=== PATIENT | female | born 1945 | race Caucasian/White ===

== ENCOUNTER 2017-09-28 20:06 | Inpatient (IN) | payer MEDICARE ==
[~2017-09-28] VITALS: Ht 162.6 cm; Wt 93.0 kg
[~2017-09-28 20:06] MED LIST: ADVI200C9 PO; LORT5TAB PO; TRIA.1%T TOP
[2017-09-28 20:11] VITALS: BP 192/98; PULSE 99; RESP 22; TEMP 98.1; O2SAT 93
[2017-09-28] MEDS ORDERED: cloNIDine HCL 0.2 MG TAB PO ONE (21:00)
--- NOTE | 2017-09-28 21:02 | PD ---
HPI Chief Complaint: Psychiatric Symptoms Time Seen by Provider: 20:48 Travel History International Travel<30 days: No Contact w/Intl Traveler<30days: No Traveled to known affect area: No History of Present Illness HPI This is a 71-year-old female who presents under a Linda act initiated by the police department. According to her paperwork, " has claimed she is going to kill herself due to having no living relatives and losing her and daughter." The patient reports that her ex son-in-law and his girlfriend are currently living at her house. She feels like they're taking advantage of her in today she had an argument with him in which she threatened to sell the house and then kill herself. She reports that she only said this because she was upset and angry. She denies any actual suicide intent but she doesn't endorse generalized feelings of depression. She denies any drug or alcohol use and she has no medical complaints at this time. [facility] Past Medical History Cerebrovascular Accident: Yes Past Surgical History Appendectomy: Yes Cholecystectomy: Yes Social History Alcohol Use: No Tobacco Use: Yes (10/08 PPD ) Substance Use: No Allergies-Medications (Allergen,Severity, Reaction): Coded Allergies: No Known Allergies (Verified Allergy, Unknown, 09/29/17) Reported Meds & Prescriptions Reported Meds & Active Scripts Active Amlodipine (Amlodipine Besylate) 5 Mg Tab 5 Mg PO DAILY Review of Systems Except as stated in HPI: all other systems reviewed are Neg Physical Exam Narrative GENERAL: This is a somewhat disheveled appearing female who is in no acute distress. SKIN: Warm and dry. HEAD: Atraumatic. Normocephalic. EYES: Pupils equal and round. No scleral icterus. No injection or drainage. ENT: No nasal bleeding or discharge. Mucous membranes pink and moist. NECK: Trachea midline. No JVD. CARDIOVASCULAR: Regular rate and rhythm. No murmur appreciated. RESPIRATORY: No accessory muscle use. Clear to auscultation. Breath sounds equal bilaterally. GASTROINTESTINAL: Abdomen soft, non-tender, nondistended. Hepatic and splenic margins not palpable. MUSCULOSKELETAL: No obvious deformities. No clubbing. No cyanosis. No edema. NEUROLOGICAL: Awake and alert. No obvious cranial nerve deficits. Motor grossly within normal limits. Normal speech. PSYCHIATRIC: Depressed, anxious, tearful. Data Data Last Documented VS Vital Signs Date Time Temp Pulse Resp B/P (MAP) Pulse Ox O2 Delivery O2 Flow Rate FiO2 09/29/17 00:31 90 20 163/77 (105) 97 Room Air 09/28/17 20:11 98.1 Orders Orders Complete Blood Count With Diff (09/28/17 20:58) Comprehensive Metabolic Panel (09/28/17 20:58) Psych Screen (09/28/17 20:58) Drug Screen, Random Urine (09/28/17 20:58) Alcohol (Ethanol) (09/28/17 20:58) Clonidine (Catapres) (09/28/17 21:00) Enalaprilat Inj (Vasotec Inj) (09/28/17 23:15) Labetalol Inj (Trandate Inj) (09/28/17 23:15) Labetalol Inj (Trandate Inj) (09/29/17 00:00) Admit Order (Ed Use Only) (09/29/17 01:21) Admit To Inpatient Psych (09/29/17 ) Vital Signs (Adult) [id number].E (09/29/17 01:21) Activity Oob Ad Deysi (09/29/17 01:21) Level Of Observation (Psych) (09/29/17 01:21) Diet Regular Basic (09/29/17 Breakfast) Basic Metabolic Panel (Bmp) (09/30/17 06:00) Urinalysis - C+S If Indicated (09/30/17 01:21) Lipid Profile (09/30/17 06:00) Hemoglobin (Hgb) A1c (09/30/17 06:00) Consult Hospitalist (09/29/17 ) Labs Laboratory Tests Test 09/28/17 21:10 09/28/17 22:40 White Blood Count 8.4 TH/MM3 Red Blood Count 4.37 MIL/MM3 Hemoglobin 14.7 GM/DL Hematocrit 42.4 % Mean Corpuscular Volume 97.1 FL Mean Corpuscular Hemoglobin 33.6 PG Mean Corpuscular Hemoglobin Concent 34.6 % Red Cell Distribution Width 12.4 % Platelet Count 266 TH/MM3 Mean Platelet Volume 7.7 FL Neutrophils (%) (Auto) 76.3 % Lymphocytes (%) (Auto) 13.6 % Monocytes (%) (Auto) 7.1 % Eosinophils (%) (Auto) 2.2 % Basophils (%) (Auto) 0.8 % Neutrophils # (Auto) 6.4 TH/MM3 Lymphocytes # (Auto) 1.1 TH/MM3 Monocytes # (Auto) 0.6 TH/MM3 Eosinophils # (Auto) 0.2 TH/MM3 Basophils # (Auto) 0.1 TH/MM3 CBC Comment DIFF FINAL Differential Comment Blood Urea Nitrogen 16 MG/DL Creatinine 0.86 MG/DL Random Glucose 148 MG/DL Total Protein 7.8 GM/DL Albumin 3.3 GM/DL Calcium Level 8.8 MG/DL Alkaline Phosphatase 123 U/L Aspartate Amino Transf (AST/SGOT) 14 U/L Alanine Aminotransferase (ALT/SGPT) 15 U/L Total Bilirubin 0.2 MG/DL Sodium Level 141 MEQ/L Potassium Level 3.5 MEQ/L Chloride Level 110 MEQ/L Carbon Dioxide Level 22.6 MEQ/L Anion Gap 8 MEQ/L Estimat Glomerular Filtration Rate 65 ML/MIN Ethyl Alcohol Level LESS THAN 3 MG/DL Urine Opiates Screen NEG Urine Barbiturates Screen NEG Urine Amphetamines Screen NEG Urine Benzodiazepines Screen NEG Urine Cocaine Screen NEG Urine Cannabinoids Screen NEG MDM Medical Decision Making Medical Screen Exam Complete: Yes Emergency Medical Condition: Yes Medical Record Reviewed: Yes Differential Diagnosis Adjustment reaction, major depressive disorder, depressive disorder not otherwise specified, acute psychosis, substance induced mood disorder Narrative Course This Is a 71-year-old female who presents under Linda act for psychiatric evaluation. She is noted to be hypertensive which is likely at least partially related to the current stressful situation. She has not seen a primary care physician in several years and never checks her blood pressure so no baseline blood pressure is available. She will be given a dose of clonidine and it was strongly recommended to her that she check her blood pressure and a routine basis and keep the readings and internal so that she can follow up with primary care physician and discuss the findings. She does verbalize understanding. Mental health screening discussed with the patient. Psychiatric screen ordered. The patient's blood pressure was persistently elevated after the administration of clonidine and therefore doses of IV labetalol were administered with initial reduction of blood pressure to 160 systolic range however this was only brief. Her blood pressure swiftly rebounded to 230/105 despite 2 IV doses of labetalol and 1 dose of oral clonidine. Initially the patient is going to be admitted to inpatient psychiatry however because of her persistently elevated blood pressure she will require admission to the medical side with likely consultation with psychiatry. Diagnosis Primary Impression: Depression Additional Impression: Hypertensive urgency Scripts Amlodipine (Amlodipine) 5 Mg Tab 5 MG PO DAILY for Blood Pressure Management, #30 TAB 0 Refills Prov: Diony Story MD 09/29/17 Kostas Negron Sep 28, 2017 21:02
[2017-09-28 21:48] VITALS: BP 192/92; PULSE 106; RESP 20; O2SAT 97
[2017-09-28 21:55] LABS: AUTOMATED NEUTROPHIL # 6.4 TH/MM3 (1.8-7.7); BASOPHIL # 0.1 TH/MM3 (0-0.2); BASOPHIL % 0.8 % (0.0-2.0); EOSINOPHIL # 0.2 TH/MM3 (0-0.4); EOSINOPHIL % 2.2 % (0.0-4.0); HEMATOCRIT 42.4 % (35.0-46.0); HEMOGLOBIN 14.7 GM/DL (11.6-15.3); LYMPH % 13.6 % (9.0-44.0); LYMPHOCYTE # 1.1 TH/MM3 (1.0-4.8); MEAN CELL VOLUME 97.1 FL (80.0-100.0); MEAN CORPUSCULAR HEMOGLOBIN 33.6 PG (27.0-34.0); MEAN CORPUSCULAR HGB CONC 34.6 % (32.0-36.0); MEAN PLATELET VOLUME 7.7 FL (7.0-11.0); MONO % 7.1 % (0.0-8.0); MONOCYTE # 0.6 TH/MM3 (0-0.9); NEUT % 76.3 % (16.0-70.0); PLATELET COUNT 266 TH/MM3 (150-450); RED BLOOD COUNT 4.37 MIL/MM3 (4.00-5.30); RED CELL DISTRIBUTION WIDTH 12.4 % (11.6-17.2); WHITE BLOOD COUNT 8.4 TH/MM3 (4.0-11.0)
[2017-09-28 22:20] VITALS: BP 204/97
[2017-09-28 22:22] LABS: ALT (GPT) 15 U/L (10-53)
[2017-09-28 22:25] LABS: ALBUMIN 3.3 GM/DL (3.4-5.0); ALKALINE PHOSPHATASE 123 U/L (45-117); AST (GOT) 14 U/L (15-37); BICARBONATE 22.6 MEQ/L (21.0-32.0); BLOOD UREA NITROGEN 16 MG/DL (7-18); CALCIUM 8.8 MG/DL (8.5-10.1); CHLORIDE 110 MEQ/L (98-107); CREATININE 0.86 MG/DL (0.50-1.00); GLOMERULAR FILTRATION RATE 65 ML/MIN (>89); GLUCOSE,RANDOM 148 MG/DL (74-106); SODIUM (NA) 141 MEQ/L (136-145); TOTAL BILIRUBIN ADULT 0.2 MG/DL (0.2-1.0); TOTAL PROTEIN 7.8 GM/DL (6.4-8.2)
[2017-09-28 23:09] VITALS: BP 233/103
[2017-09-28] MEDS ORDERED: LABETALOL HCL 100 MG/20 ML VIAL IV PUSH ONE (23:15)
[2017-09-28] MEDS ORDERED: ENALAPRILAT 2.5 MG/2 ML VIAL IV PUSH ONE (23:15)
[2017-09-29] VITALS (20 sets, daily range): BP systolic 118–230; BP diastolic 51–107; PULSE 72–96; RESP 18–22; TEMP 97.3–98.2; O2SAT 92–97
[2017-09-29] MEDS ORDERED: LABETALOL HCL 100 MG/20 ML VIAL IV PUSH ONE
[2017-09-29] MEDS ORDERED: AMLO5TAB2 PO (00:51)
[2017-09-29] MEDS ORDERED: diphenhydrAMINE HCL 50 MG CAP PO PRN (01:45)
[2017-09-29] MEDS ORDERED: ALUMINUM/MAGNESIUM/SIMETH 30 ML CUP PO PRN (01:45)
[2017-09-29] MEDS ORDERED: ACETAMINOPHEN 325 MG TAB PO PRN (01:45)
[2017-09-29] MEDS ORDERED: hydrOXYzine HCL 50 MG TAB PO PRN (01:45)
[2017-09-29] MEDS ORDERED: MAGNESIUM HYDROXIDE SUSP 30 ML CUP PO PRN ×2 (01:45→02:30)
[2017-09-29] MEDS ORDERED: diphenhydrAMINE HCL 50 MG/ML VIAL IM PRN (01:45)
[2017-09-29] MEDS ORDERED: ENALAPRILAT 2.5 MG/2 ML VIAL IV PUSH ONE (02:00)
[2017-09-29] MEDS ORDERED: SODIUM CHLORIDE 0.9% FLUSH 10 ML FLUSH IV FLUSH PRN (02:30)
[2017-09-29] MEDS ORDERED: LACTULOSE SYRUP 20 GM/30 ML CUP PO PRN (02:30)
[2017-09-29] MEDS ORDERED: NALOXONE HCL 0.4 MG/ML AMP IV PUSH PRN (02:30)
[2017-09-29] MEDS ORDERED: BISACODYL 10 MG SUPP RECTAL PRN (02:30)
[2017-09-29] MEDS ORDERED: ONDANSETRON HCL 4 MG/2 ML VIAL IVP PRN (02:30)
[2017-09-29] MEDS ORDERED: SENNOSIDES 8.6 MG TAB PO PRN (02:30)
[2017-09-29] MEDS: niCARdipine INJ 25 MG in SODIUM CHLOR 0.9% 250 ML INJ 240 ML IV PRN ×2 (02:37→05:33)
--- NOTE | 2017-09-29 05:47 | HHI.HP ---
[facility] Service [facility] Primary Care Physician No Primary Care Physician Admission Diagnosis DEPRESSIVE DISORDER NOS Diagnoses: Travel History International Travel<30 Days: No Contact w/Intl Traveler <30 Da: No Traveled to Known Affected Are: No History of Present Illness 71-year-old female with no known past medical history brought to the emergency department under Linda act for threatened suicide. The patient reports that she was in a fight with her daughters ex-husbands new girlfriend and stated that she was just going to kill herself. The patient states she was just using an expression and does not have any suicidal ideation at this time. In the emergency department the patient had hypertension that persisted despite clonidine, Vasotec and labetalol. She was started on a Cardene drip. The patient denies any medical problems and states she has not seen a doctor in at least 5 years. Review of Systems Denies fever or chills Denies blurry vision, otorrhea, rhinorrhea Denies sore throat and cough No chest pain, palpitations, shortness of breath No abdominal pain Denies constipation/diarrhea/nausea/vomiting Denies muscle pain/weakness No rashes Past Family Social History Past Medical History None Past Surgical History Place hysterectomy Appendectomy Reported Medications None Allergies: Coded Allergies: No Known Allergies (Verified Allergy, Unknown, 09/29/17) Family History Denies family history of DM/CAD Social History Smokes approximately one pack per day. Denies alcohol, illicit drugs. Physical Exam Vital Signs Vital Signs Date Time Temp Pulse Resp B/P (MAP) Pulse Ox O2 Delivery O2 Flow Rate FiO2 09/29/17 05:33 87 134/67 09/29/17 03:58 09/29/17 03:33 92 160/76 09/29/17 03:32 92 18 160/76 (104) 94 Room Air 09/29/17 02:58 92 179/83 09/29/17 02:54 90 18 179/83 (115) 94 Room Air 09/29/17 02:37 90 230/107 09/29/17 02:19 202/97 (132) 09/29/17 02:06 230/107 (148) 09/29/17 00:31 90 20 163/77 (105) 97 Room Air 09/28/17 23:09 233/103 (146) 09/28/17 22:20 204/97 (132) 09/28/17 21:48 106 20 192/92 (125) 97 Room Air 09/28/17 20:11 98.1 99 22 192/98 (129) 93 Physical Exam GENERAL: Unkempt female lying in bed SKIN: No rashes, ecchymoses or lesions. Cool and dry. HEAD: Atraumatic. Normocephalic. No temporal or scalp tenderness. EYES: Pupils equal round and reactive. Extraocular motions intact. No scleral icterus. No injection or drainage. ENT: Nose without bleeding, purulent drainage or septal hematoma. Throat without erythema, tonsillar hypertrophy or exudate. Uvula midline. Airway patent. NECK: Trachea midline. No JVD or lymphadenopathy. Supple, nontender, no meningeal signs. CARDIOVASCULAR: Regular rate and rhythm without murmurs, gallops, or rubs. RESPIRATORY: Clear to auscultation. Breath sounds equal bilaterally. No wheezes , rales, or rhonchi. GASTROINTESTINAL: Abdomen soft, non-tender, nondistended. No hepato-splenomegaly , or palpable masses. No guarding. MUSCULOSKELETAL: 2+ bilateral pitting edema. No calf tenderness. Negative Homans sign bilaterally. NEUROLOGICAL: Awake and alert. Cranial nerves II through XII intact. Motor and sensory grossly within normal limits. Normal speech. Laboratory Laboratory Tests Test 09/28/17 21:10 09/28/17 22:40 White Blood Count 8.4 Red Blood Count 4.37 Hemoglobin 14.7 Hematocrit 42.4 Mean Corpuscular Volume 97.1 Mean Corpuscular Hemoglobin 33.6 Mean Corpuscular Hemoglobin Concent 34.6 Red Cell Distribution Width 12.4 Platelet Count 266 Mean Platelet Volume 7.7 Neutrophils (%) (Auto) 76.3 Lymphocytes (%) (Auto) 13.6 Monocytes (%) (Auto) 7.1 Eosinophils (%) (Auto) 2.2 Basophils (%) (Auto) 0.8 Neutrophils # (Auto) 6.4 Lymphocytes # (Auto) 1.1 Monocytes # (Auto) 0.6 Eosinophils # (Auto) 0.2 Basophils # (Auto) 0.1 CBC Comment DIFF FINAL Differential Comment Blood Urea Nitrogen 16 Creatinine 0.86 Random Glucose 148 Total Protein 7.8 Albumin 3.3 Calcium Level 8.8 Alkaline Phosphatase 123 Aspartate Amino Transf (AST/SGOT) 14 Alanine Aminotransferase (ALT/SGPT) 15 Total Bilirubin 0.2 Sodium Level 141 Potassium Level 3.5 Chloride Level 110 Carbon Dioxide Level 22.6 Anion Gap 8 Estimat Glomerular Filtration Rate 65 Ethyl Alcohol Level LESS THAN 3 Urine Opiates Screen NEG Urine Barbiturates Screen NEG Urine Amphetamines Screen NEG Urine Benzodiazepines Screen NEG Urine Cocaine Screen NEG Urine Cannabinoids Screen NEG Result Diagram: 09/28/17210909/28/172109 Caprini VTE Risk Assessment Caprini VTE Risk Assessment: Mod/High Risk (score >= 2) Caprini Risk Assessment Model Point Value = 1 Point Value = 2 Point Value = 3 Point Value = 5 Age 41-60 Minor surgery BMI > 25 kg/m2 Swollen legs Varicose veins or History of unexplained or recurrent spontaneous Oral contraceptives or hormone replacement Sepsis (< 1 month) Serious lung disease, including pneumonia (< 1 month) Abnormal pulmonary function Acute myocardial infarction Congestive heart failure (< 1 month) History of inflammatory bowel disease Medical patient at bed rest Age 61-74 Arthroscopic surgery Major open surgery (> 45 min) Laparoscopic surgery (> 45 min) Malignancy Confined to bed (> 72 hours) Immobilizing plaster cast Central venous access Age >= 75 History of VTE Family history of VTE Factor V Leiden Prothrombin [id number] Lupus anticoagulant Anticardiolipin antibodies Elevated serum homocysteine Heparin-induced thrombocytopenia Other congenital or acquired thrombophilia Stroke (< 1 month) Elective arthroplasty Hip, pelvis, or leg fracture Acute spinal cord injury (< 1 month) Prophylaxis Regimen Total Risk Factor Score Risk Level Prophylaxis Regimen 0-1 Low Early ambulation 2 Moderate Order ONE of the following: *Sequential Compression Device (SCD) *Heparin 5000 units SQ BID 3-4 Higher Order ONE of the following medications: *Heparin 5000 units SQ TID *Enoxaparin/Lovenox 40 mg SQ daily (WT < 150 kg, CrCl > 30 mL/min) *Enoxaparin/Lovenox 30 mg SQ daily (WT < 150 kg, CrCl > 10-29 mL/min) *Enoxaparin/Lovenox 30 mg SQ BID (WT < 150 kg, CrCl > 30 mL/min) AND/OR *Sequential Compression Device (SCD) 5 or more Highest Order ONE of the following medications: *Heparin 5000 units SQ TID (Preferred with Epidurals) *Enoxaparin/Lovenox 40 mg SQ daily (WT < 150 kg, CrCl > 30 mL/min) *Enoxaparin/Lovenox 30 mg SQ daily (WT < 150 kg, CrCl > 10-29 mL/min) *Enoxaparin/Lovenox 30 mg SQ BID (WT < 150 kg, CrCl > 30 mL/min) AND *Sequential Compression Device (SCD) Assessment and Plan Assessment and Plan Assessment/plan: 1. Hypertensive crisis Cardene drip Wean as tolerated 2. Suicidal ideation/Linda act Psychiatry consulted, appreciate recommendations 3. Bilateral lower extremity edema BNP pending FEN Heart healthy diet Electrolytes: monitor and replete prn Heparin Case discussed with ER physician at length Physician Certification 2 Midnight Certification Type: Admission for Inpatient Services Order for Inpatient Services The services are ordered in accordance with Medicare regulations or non- Medicare payer requirements, as applicable. In the case of services not specified as inpatient-only, they are appropriately provided as inpatient services in accordance with the 2-midnight benchmark. Estimated LOS (days): 2 2 days is the estimated time the patient will need to remain in the hospital, assuming treatment plan goals are met and no additional complications. Post-Hospital Plan: Not yet determined Niki Charlton MD Sep 29, 2017 05:47
[2017-09-29] MEDS: HEPARIN SODIUM - SQ 10,000 UNITS/ML VIAL SQ SCH ×2 (06:00→18:08)
--- NOTE | 2017-09-29 08:28 | HHI.PR ---
Subjective Remarks "I hate hospitals" She denies chest pain or shortness of breath. Requesting to go home. Objective Vitals Vital Signs Date Time Temp Pulse Resp B/P (MAP) Pulse Ox O2 Delivery O2 Flow Rate FiO2 09/29/17 06:48 86 18 124/64 (84) 92 09/29/17 05:33 87 134/67 09/29/17 05:12 97.8 89 22 134/67 (89) 92 09/29/17 03:58 09/29/17 03:33 92 160/76 09/29/17 03:32 92 18 160/76 (104) 94 Room Air 09/29/17 02:58 92 179/83 09/29/17 02:54 90 18 179/83 (115) 94 Room Air 09/29/17 02:37 90 230/107 09/29/17 02:19 202/97 (132) 09/29/17 02:06 230/107 (148) 09/29/17 00:31 90 20 163/77 (105) 97 Room Air 09/28/17 23:09 233/103 (146) 09/28/17 22:20 204/97 (132) 09/28/17 21:48 106 20 192/92 (125) 97 Room Air 09/28/17 20:11 98.1 99 22 192/98 (129) 93 I/O 09/28/17 09/28/17 09/28/17 09/29/17 09/29/17 09/29/17 07:00 15:00 23:00 07:00 15:00 23:00 # Voids 1 Result Diagram: 09/28/17210909/28/172109 Objective Remarks GENERAL: Disheveled female. CARDIOVASCULAR: Regular rate and rhythm. RESPIRATORY: No accessory muscle use. Clear to auscultation. Breath sounds equal bilaterally. GASTROINTESTINAL: Abdomen soft, non-tender, nondistended. Hepatic and splenic margins not palpable. MUSCULOSKELETAL: Extremities without clubbing, cyanosis, or edema. No obvious deformities. NEUROLOGICAL: Awake and alert. Normal speech. PSYCHIATRIC: Somewhat paranoid. Easily irritable. A/P Assessment and Plan 71 Y/O female with hypertensive emergency requiring IV medications. Patient came in as a linda act for a suicidal ideation 1. Hypertensive crisis: Probably made worse due to stressful situation. Likely has underlying untreated HTN. Does not follow with Drs. Wean off Cardene drip today Start Lisinopril and HCTZ. CM to assist patient with PCP. Unfortunately she has no motivation to follow up. She states she just stay at home all day, everyday. No transportation and no doctors will take her. 2. Suicidal ideation/Linda act Psychiatry consulted, appreciate recommendations 3. Bilateral lower extremity edema: Likely dependent edema. BNP ok - Anoop hose. Keep legs elevated. Discharge Planning Transfer to stepdown once Cardene drip is off. May need psych admit. Kyle Ramos MD Sep 29, 2017 08:28
[2017-09-29] MEDS ORDERED: cloNIDine HCL 0.1 MG TAB PO PRN (08:45)
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
[2017-09-29] MEDS: HYDROCHLOROTHIAZIDE 25 MG TAB PO SCH (09:50)
[2017-09-29] MEDS: DOCUSATE SODIUM 50 MG/SENNA 8.6 MG TAB PO SCH ×2 (09:50→19:57)
[2017-09-29] MEDS: SODIUM CHLORIDE 0.9% FLUSH 10 ML FLUSH IV FLUSH SCH ×2 (09:51→19:55)
[2017-09-29] MEDS: LISINOPRIL 10 MG TAB PO SCH (12:49)
[2017-09-29] MEDS: NICOTINE 21 MG/24 HR PATCH T-DERMAL SCH (15:12)
--- NOTE | 2017-09-29 18:30 | EKG ---
Date Performed: 09/29/2017 Time Performed: 05:25:56 PTAGE: 71 years EKG: Sinus rhythm rSr'(V1) - probable normal variant Anterolateral T wave changes are nonspecific Borderline ECG PREVIOUS TRACING : 09/29/2017 02.18 Compared to prior tracing no significant change DOCTOR: Gabriel Patel Interpretating Date/Time 09/29/2017 18:28:15
[2017-09-29] MEDS: REMOVE OLD NICOTINE PATCH T-DERMAL SCH (19:57)
--- NOTE | 2017-09-29 21:26 | EKG ---
Date Performed: 09/29/2017 Time Performed: 02:18:06 PTAGE: 71 years EKG: Sinus rhythm INCOMPLETE RIGHT BUNDLE BRANCH BLOCK BORDERLINE ECG NO PREVIOUS TRACING DOCTOR: Gabriel Patel Interpretating Date/Time 09/29/2017 21:24:32
[2017-09-30] VITALS (19 sets, daily range): BP systolic 139–174; BP diastolic 62–87; PULSE 70–100; RESP 16–21; TEMP 97.6–99.9; O2SAT 94–99
[2017-09-30 04:32] LABS: AUTOMATED NEUTROPHIL # 4.7 TH/MM3 (1.8-7.7); BASOPHIL # 0.1 TH/MM3 (0-0.2); BASOPHIL % 0.9 % (0.0-2.0); EOSINOPHIL # 0.3 TH/MM3 (0-0.4); EOSINOPHIL % 3.6 % (0.0-4.0); HEMATOCRIT 37.3 % (35.0-46.0); LYMPH % 19.6 % (9.0-44.0); LYMPHOCYTE # 1.4 TH/MM3 (1.0-4.8); MEAN CELL VOLUME 96.3 FL (80.0-100.0); MEAN CORPUSCULAR HEMOGLOBIN 33.5 PG (27.0-34.0); MEAN CORPUSCULAR HGB CONC 34.8 % (32.0-36.0); MEAN PLATELET VOLUME 7.8 FL (7.0-11.0); MONO % 9.1 % (0.0-8.0); MONOCYTE # 0.6 TH/MM3 (0-0.9); NEUT % 66.8 % (16.0-70.0); PLATELET COUNT 244 TH/MM3 (150-450); RED BLOOD COUNT 3.88 MIL/MM3 (4.00-5.30); RED CELL DISTRIBUTION WIDTH 12.2 % (11.6-17.2); WHITE BLOOD COUNT 7.1 TH/MM3 (4.0-11.0)
[2017-09-30 04:55] LABS: BICARBONATE 24.6 MEQ/L (21.0-32.0); BLOOD UREA NITROGEN 11 MG/DL (7-18); CALCIUM 8.4 MG/DL (8.5-10.1); CHLORIDE 105 MEQ/L (98-107); CREATININE 0.74 MG/DL (0.50-1.00); GLOMERULAR FILTRATION RATE 77 ML/MIN (>89); GLUCOSE,RANDOM 99 MG/DL (74-106); SODIUM (NA) 138 MEQ/L (136-145)
[2017-09-30 04:56] LABS: CHOLESTEROL 155 MG/DL (120-200); TRIGLYCERIDES 112 MG/DL (42-150)
[2017-09-30 04:57] LABS: CHOLESTEROL/ HDL RATIO 2.76 RATIO; HDL CHOLESTEROL 56.1 MG/DL (40.0-60.0); LDL CHOLESTEROL 77 MG/DL (0-99)
[2017-09-30] MEDS: HEPARIN SODIUM - SQ 10,000 UNITS/ML VIAL SQ SCH ×2 (05:42→17:36)
--- NOTE | 2017-09-30 07:42 | HHI.PR ---
Subjective Remarks in no acute distress. denies chest pain. denies any suicidal thoughts. BP trend noted. d/w the RN at the bedside. Objective Vitals Vital Signs Date Time Temp Pulse Resp B/P (MAP) Pulse Ox O2 Delivery O2 Flow Rate FiO2 09/30/17 06:00 95 09/30/17 05:00 74 09/30/17 04:00 70 09/30/17 03:00 78 09/30/17 03:00 97.6 89 18 139/62 (87) 94 09/30/17 02:04 73 09/30/17 01:00 86 09/30/17 00:02 83 09/29/17 23:00 72 09/29/17 23:00 97.3 89 18 139/63 (88) 97 09/29/17 22:00 76 09/29/17 21:00 84 09/29/17 20:00 96 09/29/17 19:00 97.6 93 18 157/64 (95) 94 09/29/17 19:00 87 09/29/17 19:00 94 Room Air 2.00 09/29/17 18:00 89 09/29/17 17:00 85 09/29/17 16:19 96 Nasal Cannula 2.00 09/29/17 16:19 89 20 140/69 (92) 96 09/29/17 16:19 81 09/29/17 12:00 81 09/29/17 11:00 98.2 84 18 118/51 (73) 97 09/29/17 09:18 94 Nasal Cannula 1.00 09/29/17 08:00 81 I/O 09/29/17 09/29/17 09/29/17 09/30/17 09/30/17 09/30/17 07:00 15:00 23:00 07:00 15:00 23:00 Intake Total 720 ml 240 ml 240 ml Output Total 800 ml 600 ml Balance -80 ml 240 ml -360 ml Intake Oral 720 ml 240 ml 240 ml Output Urine Total 800 ml 600 ml # Voids 3 1 # Bowel Movements 0 Result Diagram: 09/30/1740709/30/17407 Objective Remarks GENERAL: This is a well-nourished, well-developed patient, in no apparent distress. CARDIOVASCULAR: Regular rate and regular rhythm without murmurs, gallops, or rubs. RESPIRATORY: Clear to auscultation. Breath sounds equal bilaterally. No wheezes , rales, or rhonchi. GASTROINTESTINAL: Abdomen soft, non-tender, nondistended. Normal, active bowel sounds MUSCULOSKELETAL: Extremities without clubbing, cyanosis, or edema. NEURO: Alert & Oriented x4 to person, place, time, situation. Moves all ext x4 Procedures none Medications and IVs Inpatient Medications Acetaminophen (Tylenol) 650 mg Q4H PRN PO TEMP > 100.4; Start 09/29/17 at 02: 30 Al Hydrox/Mg Hydrox/Simethicone (Mag-Al Plus Susp Liq) 30 ml Q6H PRN PO DYSPEPSIA; Start 09/29/17 at 01:45 Bisacodyl (Dulcolax Supp) 10 mg DAILY PRN RECTAL SEVERE CONSITIPATION; Start 09/29/17 at 02:30 Clonidine (Catapres) 0.1 mg Q6H PRN PO SBP> OR = 180, DBP> OR = 100; Start at 08:45 Diphenhydramine HCl (Benadryl Inj) 50 mg Q6H PRN IM MILD ANXIETY, EPS; Start 09/29/17 at 01:45 Diphenhydramine HCl (Benadryl) 50 mg Q6H PRN PO MILD ANXIETY, EPS; Start 09/29 at 01:45 Enalaprilat (Vasotec Inj) 2.5 mg ONCE ONCE IV PUSH Last administered on 02:02; Start 09/29/17 at 02:00; Stop 09/29/17 at 02:01; Status DC Heparin Sodium (Porcine) (Heparin Inj) 5,000 units Q12H SQ Last administered on 09/30/17 05:42; Start 09/29/17 at 06:00 Hydrochlorothiazide (Hydrodiuril) 25 mg DAILY PO Last administered on 09:50; Start 09/29/17 at 09:00 Hydroxyzine HCl (Atarax) 50 mg Q6H PRN PO ANXIETY; Start 09/29/17 at 01:45 Labetalol HCl (Trandate Inj) 10 mg ONCE ONCE IV PUSH Last administered on 00:08; Start 09/29/17 at 00:00; Stop 09/29/17 at 00:01; Status DC Lactulose (Lactulose Liq) 30 ml DAILY PRN PO SEVERE CONSITIPATION; Start 09/29 at 02:30 Lisinopril (Prinivil) 10 mg DAILY PO Last administered on 09/29/17 12:49; Start 09/29/17 at 09:00 Magnesium Hydroxide (Milk Of Magnesia Liq) 30 ml Q12H PRN PO Mild constipation ; Start 09/29/17 at 02:30 Miscellaneous Information 1 HS T-DERMAL Last administered on 09/29/17 19:57; Start 09/29/17 at 21:00 Naloxone HCl (Narcan Inj) 0.4 mg UNSCH PRN IV PUSH SEE LABEL COMMENTS; Start 09/29/17 at 02:30 Nicardipine HCl 25 mg/Sodium Chloride 250 ml @ 50 mls/hr TITRATE PRN IV Blood pressure management Last administered on 09/29/17 05:33; Start 09/29/17 at 02 :30 Nicotine (Habitrol 21 Mg Patch.24 Hr) 1 patch DAILY T-DERMAL Last administered on 09/29/17 15:12; Start 09/29/17 at 09:00 Ondansetron HCl (Zofran Inj) 4 mg Q6H PRN IVP NAUSEA OR VOMITING; Start at 02:30 Senna/Docusate Sodium (Tia-Colace) 1 tab BID PO Last administered on 09:50; Start 09/29/17 at 09:00 Sennosides (Senokot) 17.2 mg Q12H PRN PO Moderate constipation; Start at 02:30 Sodium Chloride (NS Flush) 2 ml BID IV FLUSH Last administered on 09/29/17 19 :55; Start 09/29/17 at 09:00 A/P Assessment and Plan 1. Hypertensive crisis: Probably made worse due to stressful situation. Likely has underlying untreated HTN. Does not follow with [facility]. BP has much improved. continue Lisinopril and HCTZ. CM to assist patient with PCP. Unfortunately she has no motivation to follow up. She states she just stay at home all day, everyday. No transportation and no doctors will take her. 2. Suicidal ideation/Linda act Psychiatry consulted- linda act was lifted and cleared for discharge. case management consulted. 3. Bilateral lower extremity edema: Likely dependent edema. BNP ok - Anoop hose. Keep legs elevated. 4. hypokalemia; will replace. Discharge Planning discharge within the next 24 hrs- pending PT and case management evaluation. might need rehab. see med list. f/u; pcp. d/w the patient and RN. time spent 35 min. Winston Carreno MD Sep 30, 2017 07:42
[2017-09-30] MEDS ORDERED: LISI10TA3 PO (07:43)
[2017-09-30] MEDS ORDERED: HYDR25TA5 PO (07:43)
[2017-09-30] MEDS ORDERED: POTASSIUM CHLORIDE 10 MEQ CONTROLLED RELEASE TAB PO ONE ×2 (08:00→12:00)
[2017-09-30] MEDS: SODIUM CHLORIDE 0.9% FLUSH 10 ML FLUSH IV FLUSH SCH ×2 (09:00→20:11)
[2017-09-30] MEDS: DOCUSATE SODIUM 50 MG/SENNA 8.6 MG TAB PO SCH ×2 (09:00→20:11)
[2017-09-30] MEDS: HYDROCHLOROTHIAZIDE 25 MG TAB PO SCH (09:54)
[2017-09-30] MEDS: NICOTINE 21 MG/24 HR PATCH T-DERMAL SCH (09:55)
[2017-09-30] MEDS: LISINOPRIL 10 MG TAB PO SCH (09:55)
[2017-09-30 12:06] LABS: HEMOGLOBIN A1C 5.3 % (4.3-6.0)
[2017-09-30 13:32] LABS: AMORPHOUS SEDIMENT, URINE MANY; BACTERIA, URINE MANY /hpf; BILIRUBIN, URINE NEG (NEG); BLOOD, URINE TRACE (NEG); GLUCOSE,URINE NEG (NEG); HYALINE CAST, URINE 3 /lpf (RARE); KETONE, URINE NEG (NEG); MUCUS URINE FEW /lpf (OCC); NITRITE,URINE POS (NEG); PH, URINE 6.5 (5.0-8.5); SQUAMOUS EPITHELIAL CELL URINE 7 /hpf (0-5); URINE COLOR YELLOW (YELLW/STRAW); URINE LEUKOCYTE ESTERASE LARGE (NEG)
[2017-09-30] MEDS: REMOVE OLD NICOTINE PATCH T-DERMAL SCH (20:11)
[2017-09-30] MEDS: ACETAMINOPHEN 325 MG TAB PO PRN (20:37)
[2017-10-01] VITALS (11 sets, daily range): BP systolic 135–162; BP diastolic 58–79; PULSE 71–104; RESP 17–22; TEMP 97.3–98.2; O2SAT 94–99
[2017-10-01] MEDS: HEPARIN SODIUM - SQ 10,000 UNITS/ML VIAL SQ SCH ×2 (05:10→16:59)
[2017-10-01] MEDS: SODIUM CHLORIDE 0.9% FLUSH 10 ML FLUSH IV FLUSH SCH ×2 (09:00→21:35)
[2017-10-01] MEDS: HYDROCHLOROTHIAZIDE 25 MG TAB PO SCH (09:00)
--- NOTE | 2017-10-01 09:02 | HHI.PR ---
Subjective Remarks in no acute distress. has some body ache. wants ti go home. d/w the RN. Objective Vitals Vital Signs Date Time Temp Pulse Resp B/P (MAP) Pulse Ox O2 Delivery O2 Flow Rate FiO2 10/01/17 04:00 71 10/01/17 04:00 98.0 88 22 162/79 (106) 99 10/01/17 03:53 Nasal Cannula 2.00 10/01/17 00:00 93 10/01/17 00:00 Nasal Cannula 2.00 10/01/17 00:00 98.2 84 20 143/67 (92) 98 09/30/17 21:00 Nasal Cannula 2.00 09/30/17 20:11 99.9 99 18 167/77 (107) 99 09/30/17 20:00 97 09/30/17 16:00 97.8 100 20 160/80 (106) 98 09/30/17 16:00 93 09/30/17 12:01 97.6 90 21 140/80 (100) 99 09/30/17 12:00 91 09/30/17 11:31 97.8 09/30/17 11:31 92 16 159/87 (111) 98 09/30/17 11:00 78 09/30/17 10:00 92 09/30/17 09:30 163/74 (103) I/O 09/30/17 09/30/17 09/30/17 10/01/17 10/01/17 10/01/17 07:00 15:00 23:00 07:00 15:00 23:00 Intake Total 240 ml 240 ml 480 ml Output Total 600 ml Balance -360 ml 240 ml 480 ml Intake Oral 240 ml 240 ml 480 ml Output Urine Total 600 ml # Voids 4 4 # Bowel Movements 0 0 Result Diagram: 09/30/1740709/30/17407 Objective Remarks GENERAL: This is a well-nourished, well-developed patient, in no apparent distress. CARDIOVASCULAR: Regular rate and regular rhythm without murmurs, gallops, or rubs. RESPIRATORY: Clear to auscultation. Breath sounds equal bilaterally. No wheezes , rales, or rhonchi. GASTROINTESTINAL: Abdomen soft, non-tender, nondistended. Normal, active bowel sounds MUSCULOSKELETAL: Extremities without clubbing, cyanosis, or edema. NEURO: Alert & Oriented x4 to person, place, time, situation. Moves all ext x4 Procedures none Medications and IVs Inpatient Medications Acetaminophen (Tylenol) 650 mg Q4H PRN PO TEMP > 100.4 Last administered on 20:37; Start 09/29/17 at 02:30 Al Hydrox/Mg Hydrox/Simethicone (Mag-Al Plus Susp Liq) 30 ml Q6H PRN PO DYSPEPSIA; Start 09/29/17 at 01:45 Bisacodyl (Dulcolax Supp) 10 mg DAILY PRN RECTAL SEVERE CONSITIPATION; Start 09/29/17 at 02:30 Clonidine (Catapres) 0.1 mg Q6H PRN PO SBP> OR = 180, DBP> OR = 100; Start at 08:45 Diphenhydramine HCl (Benadryl Inj) 50 mg Q6H PRN IM MILD ANXIETY, EPS; Start 09/29/17 at 01:45 Diphenhydramine HCl (Benadryl) 50 mg Q6H PRN PO MILD ANXIETY, EPS; Start 09/29 at 01:45 Enalaprilat (Vasotec Inj) 2.5 mg ONCE ONCE IV PUSH Last administered on 02:02; Start 09/29/17 at 02:00; Stop 09/29/17 at 02:01; Status DC Heparin Sodium (Porcine) (Heparin Inj) 5,000 units Q12H SQ Last administered on 10/01/17 05:10; Start 09/29/17 at 06:00 Hydrochlorothiazide (Hydrodiuril) 25 mg DAILY PO Last administered on 09:54; Start 09/29/17 at 09:00 Hydroxyzine HCl (Atarax) 50 mg Q6H PRN PO ANXIETY; Start 09/29/17 at 01:45 Labetalol HCl (Trandate Inj) 10 mg ONCE ONCE IV PUSH Last administered on 00:08; Start 09/29/17 at 00:00; Stop 09/29/17 at 00:01; Status DC Lactulose (Lactulose Liq) 30 ml DAILY PRN PO SEVERE CONSITIPATION; Start 09/29 at 02:30 Lisinopril (Prinivil) 10 mg DAILY PO Last administered on 09/30/17 09:55; Start 09/29/17 at 09:00 Magnesium Hydroxide (Milk Of [place] Luis) 30 ml Q12H PRN PO Mild constipation ; Start 09/29/17 at 02:30 Miscellaneous Information 1 HS T-DERMAL Last administered on 09/30/17 20:11; Start 09/29/17 at 21:00 Naloxone HCl (Narcan Inj) 0.4 mg UNSCH PRN IV PUSH SEE LABEL COMMENTS; Start 09/29/17 at 02:30 Nicardipine HCl 25 mg/Sodium Chloride 250 ml @ 50 mls/hr TITRATE PRN IV Blood pressure management Last administered on 09/29/17 05:33; Start 09/29/17 at 02 :30; Stop 09/30/17 at 12:29; Status DC Nicotine (Habitrol 21 Mg Patch.24 Hr) 1 patch DAILY T-DERMAL Last administered on 09/30/17 09:55; Start 09/29/17 at 09:00 Ondansetron HCl (Zofran Inj) 4 mg Q6H PRN IVP NAUSEA OR VOMITING; Start at 02:30 Potassium Chloride (KCl) 40 meq ONCE ONCE PO Last administered on 09/30/17 12:04; Start 09/30/17 at 12:00; Stop 09/30/17 at 12:01; Status DC Senna/Docusate Sodium (Tia-Colace) 1 tab BID PO Last administered on 20:11; Start 09/29/17 at 09:00 Sennosides (Senokot) 17.2 mg Q12H PRN PO Moderate constipation; Start at 02:30 Sodium Chloride (NS Flush) 2 ml BID IV FLUSH Last administered on 09/30/17 20 :11; Start 09/29/17 at 09:00 A/P Assessment and Plan 1. Hypertensive crisis: Probably made worse due to stressful situation. Likely has underlying untreated HTN. Does not follow with Drs. overall BP has much improved. continue Lisinopril and HCTZ. CM to assist patient with PCP. Unfortunately she has no motivation to follow up. She states she just stay at home all day, everyday. No transportation and no doctors will take her. 2. Suicidal ideation/Linda act Psychiatry consulted- linda act was lifted and cleared for discharge. case management consulted. 3. Bilateral lower extremity edema: Likely dependent edema. BNP ok - Anoop hose. Keep legs elevated. 4. hypokalemia; replaced. consulted PT. Discharge Planning discharge today- pending PT and case management re-evaluation. might need rehab although she wants to go home. see med list. f/u; pcp. d/w the patient and RN. time spent 35 min. Winston Carreno MD Oct 01, 2017 09:02
[2017-10-01] MEDS ORDERED: CIPR250T52 PO (09:05)
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
--- NOTE | 2017-10-01 09:08 | HHI.FF ---
Face to Face Verification Diagnosis: (1) Hypertensive urgency Physical Therapy Order: Evaluate and Treat Home Health Nursing Order: Medical education Signs/symptoms of disease process Medication education-adverse effect Nursing assessment with vital signs I have seen patient Adela Salazar on 10/01/17. My clinical findings support the need for the requested home health care services because: Ltd mobility - disease progression I certify that my clinical findings support that this patient is homebound because: Unsteady gait/balance Winston Carreno MD Oct 01, 2017 09:08
[2017-10-01] MEDS: LISINOPRIL 10 MG TAB PO SCH (10:48)
[2017-10-01] MEDS: NICOTINE 21 MG/24 HR PATCH T-DERMAL SCH (10:49)
[2017-10-01] MEDS: DOCUSATE SODIUM 50 MG/SENNA 8.6 MG TAB PO SCH ×2 (10:49→21:34)
[2017-10-01] MEDS: CIPROFLOXACIN 250 MG TAB PO SCH ×2 (12:08→21:34)
--- NOTE | 2017-10-01 12:16 | HHI.FF ---
Face to Face Verification Diagnosis: (1) Hypertensive urgency Home Health Nursing Order: Medical education Signs/symptoms of disease process Medication education-adverse effect Nursing assessment with vital signs I have seen patient Adela Salazar on 10/01/17. My clinical findings support the need for the requested home health care services because: Ltd mobility - disease progression I certify that my clinical findings support that this patient is homebound because: Unsteady gait/balance Winston Carreno MD Oct 01, 2017 12:16
--- NOTE | 2017-10-01 13:04 | HHI.PR ---
Addendum To [facility] Progress Not Reason for addendum: Additonal documentation (was notified by the RN that the patient was seen by PT and she could hardly get out of the bed. d/w the patient again. she said that she's alone for most part of the day and she's not sure if she could go home. will hold the discharge for now- continue with PT. d/w the patient, RN and case management.) Winston Carreno MD Oct 01, 2017 13:04
[2017-10-01] MEDS: REMOVE OLD NICOTINE PATCH T-DERMAL SCH (21:00)
[2017-10-01] MEDS: ACETAMINOPHEN 325 MG TAB PO PRN (21:37)
[2017-10-02] VITALS (7 sets, daily range): BP systolic 137–162; BP diastolic 73–83; PULSE 77–106; RESP 17–19; TEMP 97.3–98.2; O2SAT 95–97
[2017-10-02] MEDS: HEPARIN SODIUM - SQ 10,000 UNITS/ML VIAL SQ SCH (05:55)
[2017-10-02] MEDS: DOCUSATE SODIUM 50 MG/SENNA 8.6 MG TAB PO SCH (08:39)
[2017-10-02] MEDS: NICOTINE 21 MG/24 HR PATCH T-DERMAL SCH (08:39)
[2017-10-02] MEDS: SODIUM CHLORIDE 0.9% FLUSH 10 ML FLUSH IV FLUSH SCH (08:39)
[2017-10-02] MEDS: LISINOPRIL 10 MG TAB PO SCH (08:39)
[2017-10-02] MEDS: CIPROFLOXACIN 250 MG TAB PO SCH (08:39)
[2017-10-02] MEDS: HYDROCHLOROTHIAZIDE 25 MG TAB PO SCH (08:39)
--- NOTE | 2017-10-02 10:41 | HHI.PR ---
Subjective Remarks Patient lives at home with family. Has not been so mobile here is being seen by physical therapy and occupational therapy May need short course of SNF to improve ambulation and ability to take care of herself Await safe placement insurance may be an issue Scheduled patient and RN and case management Objective Vitals Vital Signs Date Time Temp Pulse Resp B/P (MAP) Pulse Ox O2 Delivery O2 Flow Rate FiO2 10/02/17 08:02 97.3 97 19 162/73 (102) 96 10/02/17 08:00 Nasal Cannula 2.00 10/02/17 08:00 77 10/02/17 04:00 98.2 95 17 153/75 (101) 97 10/02/17 03:44 88 10/02/17 00:00 97.8 98 17 138/83 (101) 96 10/01/17 23:47 98 10/01/17 20:00 97.9 96 17 156/78 (104) 97 10/01/17 20:00 Nasal Cannula 2.00 10/01/17 19:45 100 10/01/17 16:15 104 10/01/17 16:00 97.3 102 20 135/69 (91) 95 10/01/17 12:15 78 10/01/17 12:00 97.6 82 20 160/73 (102) 95 I/O 10/01/17 10/01/17 10/01/17 10/02/17 10/02/17 10/02/17 06:59 14:59 22:59 06:59 14:59 22:59 Intake Total 480 ml 240 ml Output Total 300 ml Balance 480 ml -60 ml Intake Oral 480 ml 240 ml Output Urine Total 300 ml # Voids 4 2 3 3 # Bowel Movements 0 0 Result Diagram: 09/30/17 0408 10/01/17 0923 Other Results Laboratory Tests Test 09/30/17 04:08 09/30/17 12:20 10/01/17 09:23 White Blood Count 7.1 TH/MM3 Red Blood Count 3.88 MIL/MM3 Hemoglobin 13.0 GM/DL Hematocrit 37.3 % Mean Corpuscular Volume 96.3 FL Mean Corpuscular Hemoglobin 33.5 PG Mean Corpuscular Hemoglobin Concent 34.8 % Red Cell Distribution Width 12.2 % Platelet Count 244 TH/MM3 Mean Platelet Volume 7.8 FL Neutrophils (%) (Auto) 66.8 % Lymphocytes (%) (Auto) 19.6 % Monocytes (%) (Auto) 9.1 % Eosinophils (%) (Auto) 3.6 % Basophils (%) (Auto) 0.9 % Neutrophils # (Auto) 4.7 TH/MM3 Lymphocytes # (Auto) 1.4 TH/MM3 Monocytes # (Auto) 0.6 TH/MM3 Eosinophils # (Auto) 0.3 TH/MM3 Basophils # (Auto) 0.1 TH/MM3 CBC Comment DIFF FINAL Differential Comment Blood Urea Nitrogen 11 MG/DL Creatinine 0.74 MG/DL Random Glucose 99 MG/DL Calcium Level 8.4 MG/DL Sodium Level 138 MEQ/L Potassium Level 3.1 MEQ/L 4.0 MEQ/L Chloride Level 105 MEQ/L Carbon Dioxide Level 24.6 MEQ/L Anion Gap 8 MEQ/L Estimat Glomerular Filtration Rate 77 ML/MIN Hemoglobin A1c 5.3 % Triglycerides Level 112 MG/DL Cholesterol Level 155 MG/DL LDL Cholesterol 77 MG/DL HDL Cholesterol 56.1 MG/DL Cholesterol/HDL Ratio 2.76 RATIO Urine Color YELLOW Urine Turbidity HAZY Urine pH 6.5 Urine Specific [place] 1.013 Urine Protein TRACE mg/dL Urine Glucose (UA) NEG mg/dL Urine Ketones NEG mg/dL Urine Occult Blood TRACE Urine Nitrite POS Urine Bilirubin NEG Urine Urobilinogen LESS THAN 2.0 MG/DL Urine Leukocyte Esterase LARGE Urine RBC 5 /hpf Urine WBC 60 /hpf Urine Squamous Epithelial Cells 7 /hpf Urine Amorphous Sediment MANY Urine Bacteria MANY /hpf Urine Hyaline Casts 3 /lpf Urine Mucus FEW /lpf Microscopic Urinalysis Comment CULTURE INDICATED Objective Remarks GENERAL: Awake alert oriented talkative and cooperative SKIN: Warm and dry. HEAD: Atraumatic. Normocephalic. EYES: Pupils equal and round. No scleral icterus. No injection or drainage. Extraocular muscles intact ENT: No nasal bleeding or discharge. Mucous membranes pink and moist. Tongue is midline NECK: Trachea midline. No JVD. Supple CARDIOVASCULAR: Regular rate and rhythm. S1 and S2 no S3 or S4 no heave or thrill or rub or gallop RESPIRATORY: No accessory muscle use. Clear to auscultation. Breath sounds equal bilaterally. GASTROINTESTINAL: Abdomen soft, non-tender, nondistended. Hepatic and splenic margins not palpable. MUSCULOSKELETAL: Extremities without clubbing, cyanosis, 2 to 3 bilateral lower extremity edema chronic. No obvious deformities. NEUROLOGICAL: Awake and alert. No obvious cranial nerve deficits. Motor grossly within normal limits. 4 out of 5 muscle strength in the arms and legs. Normal speech. Has generalized weakness PSYCHIATRIC: Appropriate mood and affect; insight and judgment normal. Procedures none Medications and IVs Current Medications Clonidine (Catapres) 0.2 mg ONCE ONCE PO Last administered on 09/28/17 21:12 ; Start 09/28/17 at 21:00; Stop 09/28/17 at 21:01; Status DC Enalaprilat (Vasotec Inj) 2.5 mg ONCE ONCE IV PUSH ; Start 09/28/17 at 23:15; Stop 09/28/17 at 23:15; Status DC Labetalol HCl (Trandate Inj) 20 mg ONCE ONCE IV PUSH Last administered on 23:19; Start 09/28/17 at 23:15; Stop 09/28/17 at 23:16; Status DC Labetalol HCl (Trandate Inj) 10 mg ONCE ONCE IV PUSH Last administered on 00:08; Start 09/29/17 at 00:00; Stop 09/29/17 at 00:01; Status DC Hydroxyzine HCl (Atarax) 50 mg Q6H PRN PO ANXIETY; Start 09/29/17 at 01:45 Diphenhydramine HCl (Benadryl) 50 mg Q6H PRN PO MILD ANXIETY, EPS; Start 09/29 at 01:45 Diphenhydramine HCl (Benadryl Inj) 50 mg Q6H PRN IM MILD ANXIETY, EPS; Start 09/29/17 at 01:45 Acetaminophen (Tylenol) 650 mg Q4H PRN PO Pain 1-5 or Temp >101F; Start at 01:45; Stop 09/30/17 at 12:32; Status DC Magnesium Hydroxide (Milk Of Magnesia Liq) 30 ml DAILY PRN PO CONSTIPATION; Start 09/29/17 at 01:45; Stop 09/30/17 at 12:32; Status DC Al Hydrox/Mg Hydrox/Simethicone (Mag-Al Plus Susp Liq) 30 ml Q6H PRN PO DYSPEPSIA; Start 09/29/17 at 01:45 Nicotine (Habitrol 21 Mg Patch.24 Hr) 1 patch DAILY T-DERMAL Last administered on 10/02/17 08:39; Start 09/29/17 at 09:00 Miscellaneous Information 1 HS T-DERMAL Last administered on 10/01/17 21:00; Start 09/29/17 at 21:00 Enalaprilat (Vasotec Inj) 2.5 mg ONCE ONCE IV PUSH Last administered on 02:02; Start 09/29/17 at 02:00; Stop 09/29/17 at 02:01; Status DC Nicardipine HCl 25 mg/Sodium Chloride 250 ml @ 50 mls/hr TITRATE PRN IV Blood pressure management Last administered on 09/29/17 05:33; Start 09/29/17 at 02 :30; Stop 09/30/17 at 12:29; Status DC Sodium Chloride (NS Flush) 2 ml UNSCH PRN IV FLUSH FLUSH AFTER USING IV ACCESS ; Start 09/29/17 at 02:30 Sodium Chloride (NS Flush) 2 ml BID IV FLUSH Last administered on 10/02/17 08 :39; Start 09/29/17 at 09:00 Acetaminophen (Tylenol) 650 mg Q4H PRN PO TEMP > 100.4 Last administered on 21:37; Start 09/29/17 at 02:30 Ondansetron HCl (Zofran Inj) 4 mg Q6H PRN IVP NAUSEA OR VOMITING; Start at 02:30 Heparin Sodium (Porcine) (Heparin Inj) 5,000 units Q12H SQ Last administered on 10/02/17 05:55; Start 09/29/17 at 06:00 Naloxone HCl (Narcan Inj) 0.4 mg UNSCH PRN IV PUSH SEE LABEL COMMENTS; Start 09/29/17 at 02:30 Senna/Docusate Sodium (Tia-Colace) 1 tab BID PO Last administered on 08:39; Start 09/29/17 at 09:00 Magnesium Hydroxide (Milk Of Magnesia Liq) 30 ml Q12H PRN PO Mild constipation ; Start 09/29/17 at 02:30 Sennosides (Senokot) 17.2 mg Q12H PRN PO Moderate constipation; Start at 02:30 Bisacodyl (Dulcolax Supp) 10 mg DAILY PRN RECTAL SEVERE CONSITIPATION; Start 09/29/17 at 02:30 Lactulose (Lactulose Liq) 30 ml DAILY PRN PO SEVERE CONSITIPATION; Start 09/29 at 02:30 Hydrochlorothiazide (Hydrodiuril) 25 mg DAILY PO Last administered on 08:39; Start 09/29/17 at 09:00 Lisinopril (Prinivil) 10 mg DAILY PO Last administered on 10/02/17 08:39; Start 09/29/17 at 09:00 Clonidine (Catapres) 0.1 mg Q6H PRN PO SBP> OR = 180, DBP> OR = 100; Start at 08:45 Potassium Chloride (KCl) 40 meq ONCE ONCE PO Last administered on 09/30/17 09:54; Start 09/30/17 at 08:00; Stop 09/30/17 at 08:01; Status DC Potassium Chloride (KCl) 40 meq ONCE ONCE PO Last administered on 09/30/17 12:04; Start 09/30/17 at 12:00; Stop 09/30/17 at 12:01; Status DC Ciprofloxacin (Cipro) 250 mg Q12HR PO Last administered on 10/02/17 08:39; Start 10/01/17 at 10:00 A/P Problem List: (1) Hypertensive urgency ICD Code: I16.0 - Hypertensive urgency Status: Acute Assessment and Plan 1. Hypertensive crisis: Probably made worse due to stressful situation. Likely has underlying untreated HTN. Does not follow with Drs. overall BP has much improved. continue Lisinopril and HCTZ. CM to assist patient with PCP. Unfortunately she has no motivation to follow up. She states she just stay at home all day, everyday. No transportation and no doctors will take her. 2. Suicidal ideation/Linda act Psychiatry consulted- linda act was lifted and cleared for discharge. case management consulted. 3. Bilateral lower extremity edema: Likely dependent edema. BNP ok - Anoop hose. Keep legs elevated. 4. hypokalemia; replaced. consulted PT. Discharge Planning discharge today- pending PT and case management re-evaluation. might need rehab although she wants to go home. see med list. f/u; pcp. d/w the patient and RN. Patient may need to go to SNF versus home Not sure if patient will get home health or SNF benefit Discharge Planning Pending safe discharge and consult with case management Vinay Fregoso DO Oct 02, 2017 10:40
[2017-10-02 13:36] LABS: AUTOMATED NEUTROPHIL # 4.5 TH/MM3 (1.8-7.7); BASOPHIL # 0.1 TH/MM3 (0-0.2); BASOPHIL % 1.1 % (0.0-2.0); EOSINOPHIL # 0.3 TH/MM3 (0-0.4); HEMATOCRIT 41.8 % (35.0-46.0); HEMOGLOBIN 14.2 GM/DL (11.6-15.3); LYMPH % 21.9 % (9.0-44.0); LYMPHOCYTE # 1.5 TH/MM3 (1.0-4.8); MEAN CELL VOLUME 97.3 FL (80.0-100.0); MEAN CORPUSCULAR HEMOGLOBIN 33.1 PG (27.0-34.0); MEAN PLATELET VOLUME 8.1 FL (7.0-11.0); MONO % 7.7 % (0.0-8.0); MONOCYTE # 0.5 TH/MM3 (0-0.9); NEUT % 65.3 % (16.0-70.0); PLATELET COUNT 278 TH/MM3 (150-450); RED CELL DISTRIBUTION WIDTH 12.5 % (11.6-17.2); WHITE BLOOD COUNT 6.9 TH/MM3 (4.0-11.0)
[2017-10-02 13:57] LABS: ALBUMIN 3.2 GM/DL (3.4-5.0); ALT (GPT) 37 U/L (10-53); AST (GOT) 49 U/L (15-37); BLOOD UREA NITROGEN 20 MG/DL (7-18); CALCIUM 9.4 MG/DL (8.5-10.1); CHLORIDE 101 MEQ/L (98-107); CREATININE 0.89 MG/DL (0.50-1.00); GLOMERULAR FILTRATION RATE 63 ML/MIN (>89); GLUCOSE,RANDOM 137 MG/DL (74-106); MAGNESIUM 2.3 MG/DL (1.5-2.5); SODIUM (NA) 137 MEQ/L (136-145)
[2017-10-02 14:16] LABS: ALKALINE PHOSPHATASE 121 U/L (45-117); FREE T4 1.54 NG/DL (0.76-1.46); PHOSPHORUS 4.1 MG/DL (2.5-4.9); TOTAL BILIRUBIN ADULT 0.3 MG/DL (0.2-1.0); TOTAL PROTEIN 7.8 GM/DL (6.4-8.2)
[2017-10-02 16:56] LABS: HEMOGLOBIN A1C 5.1 % (4.3-6.0)
== END 2017-10-02 17:03 | DRG 305 ==
LOC: NEPD 20:06 → NEDA 09-29 01:25 → HCVI 09-29 05:13 → HCPC 09-29 16:16 → N04A 09-30 12:58
PROVIDERS: ADMIT Hospitalist; ATTEND Hospitalist
DX: I16.1 Hypertensive emergency (principal); R45.851 Suicidal ideations; N39.0 Urinary tract infection, site not specified; F17.210 Nicotine dependence, cigarettes, uncomplicated; I10 Essential (primary) hypertension; B96.20 Unspecified Escherichia coli [E. coli] as the cause of diseases classified elsewhere; E87.6 Hypokalemia; R60.0 Localized edema; F43.21 Adjustment disorder with depressed mood; Z86.73 Personal history of transient ischemic attack (TIA), and cerebral infarction without residual deficits
CPT/HCPCS: 80048; 80053; 80061; 80307; 81001; 82948; 83036; 83735; 83880; 84100; 84132; 84439; 84443; 85025; 87077; 87086; 87186; 93005; 96374; 96376; J1644; J7050